=== PATIENT | male | born 1940 | race Caucasian/White ===

== ENCOUNTER 2016-04-05 19:50 | Emergency (ER) | payer MEDICARE ==
[2016-04-05 20:30] LABS: ABSOLUTE NEUTROPHIL COUNT 5.2 K/mm3 (1.8-7.7); BASO # 0.1 K/mm3 (0.0-0.2); BASO % 1.1 % (0.2-1.0); EOS # 0.1 (0.0-0.5); EOS % 1.4 % (0.9-2.9); HEMATOCRIT 44.8 % (32.0-52.0); HEMOGLOBIN 14.1 gm/l (14.0-18.0); IMM NEUT% 0.2 % (0-1); LYMPH # 2.1 (1.0-4.8); LYMPH % 26.2 % (15-45); MEAN CELL VOLUME 87.3 fl (80.0-94.0); MEAN CORPUSCULAR HEMOGLOBIN 27.5 pg (27.0-31.0); MEAN CORPUSCULAR HGB CONC 31.5 g/dl (33.0-37.0); MEAN PLATELET VOLUME 9.6 fl (7.4-10.4); MONO # 0.5 (0.0-0.8); MONO % 6.4 % (4-12); NEUT % 64.7 % (43-75); PLATELET COUNT 275 K/mm3 (130-400); RED CELL DISTRIBUTION WIDTH 12.3 % (11.5-14.5)
[2016-04-05 20:43] LABS: ALB/GLOB RATIO 1.3 (>1.0); ALBUMIN 3.9 gm/dL (3.5-5.7); CALCIUM 9.6 mg/dL (8.6-10.3)
[2016-04-05] MEDS ORDERED: PREDNISONE 20 MG TABLET ONE (22:04)
[2016-04-05] MEDS ORDERED: AZITHROMYCIN 500 MG VIAL ONE (22:04)
[2016-04-05] MEDS ORDERED: SODIUM CHLORIDE 0.9% 0 ML IV ONE (22:05)
[2016-04-05] MEDS ORDERED: SODIUM CHLORIDE 0.9% 500 ML ONE (22:07)
[2016-04-05 22:20] LABS: TROPONIN I < 0.01 ng/ml (0.0-0.06)
--- NOTE | 2016-04-06 07:59 | RAD ---
History: Dyspnea. Comparison: 11/09/2014. Technique: 2 views Findings: There is evidence of pulmonary hyperinflation with flattening of both hemidiaphragms. The heart size is stable. No gross consolidation, effusion or pneumothorax is seen. The hilar and mediastinal structures are intact. There are postsurgical changes seen projecting over the lower cervical spine. Impression: 1. Pulmonary hyperinflation. 2. Postsurgical changes of the visualized lower cervical spine.
== END 2016-04-05 23:30 | disposition home or self-care (01) ==
LOC: ED 19:50
DX: J43.9 Emphysema, unspecified (principal); K21.9 Gastro-esophageal reflux disease without esophagitis; F17.210 Nicotine dependence, cigarettes, uncomplicated
CPT/HCPCS: 85025; 82553; 80053; 84484; 71020; 99284 ×2; 96365; 93005; J7512; J0456; J7040